=== PATIENT | male | born 1995 | race Two or more races ===

== ENCOUNTER 2023-09-06 22:53 | Emergency (ER) | payer SELFPAY ==
[~2023-09-06] VITALS: Ht 185.4 cm; Wt 68.2 kg
[2023-09-06 23:11] VITALS: TEMP 98.1
[2023-09-06] MEDS: CEPHALEXIN MONOHYDRATE 500 MG CAPSULE PO ONE (23:52)
[2023-09-06] MEDS: IBUPROFEN 600 MG TABLET PO ONE (23:52)
[2023-09-06] MEDS: ACETAMINOPHEN/CODEINE 300-30 MG TABLET PO ONE (23:52)
[2023-09-07] MEDS ORDERED: AZIT250T9 PO (00:09)
[2023-09-07] MEDS ORDERED: ACET-2080 PO (00:09)
[2023-09-07] MEDS ORDERED: IBUP-1554 PO (00:10)
[2023-09-07 00:20] VITALS: BP 135/77; PULSE 72; RESP 15
== END 2023-09-07 00:22 | disposition home or self-care (01) ==
LOC: EMS 22:56
DX: H66.91 Otitis media, unspecified, right ear (principal)
CPT/HCPCS: 99284; Z7502; Z7610